=== PATIENT | female | born 1980 | race Caucasian/White ===

== ENCOUNTER 2017-08-05 14:10 | Outpatient (CLI) | payer BC ==
[~2017-08-05 14:10] MED LIST: Gadobenate Dimeglumine 529 MG/1 ML (20ML VIAL) ONE
--- NOTE | 2017-08-05 16:15 | MRI ---
PRE AND POSTCONTRAST ENHANCED MRI IMAGES OF BRAIN: HISTORY: Headache, left side, for 1 year. FINDINGS: Pre- and postcontrast-enhanced MRI images of the brain are obtained. The brain is unremarkable. No evidence of intracranial masses, hemorrhages, strokes, or contusions s een. No evidence of areas of diffusion restriction seen. No abnormal areas of intracranial enhancem ent seen. IMPRESSION: Unremarkable pre- and postcontrast-enhanced MRI images of the brain. POS: [facility]
--- NOTE | 2017-08-05 16:25 | MRI ---
CERVICAL SPINE MRI WITHOUT CONTRAST: 08/05/17 HISTORY: Headache with radiation down the left side of the neck x1 year. COMPARISON: None. TECHNIQUE: Cervical spine MRI is performed without intravenous gadolinium administration. Multisequential, multi planar imaging is performed. FINDINGS: Appropriate T1 marrow signal intensity of the cervical vertebrae. Vertebral body height is maintained . No fracture. No significant STIR hyperintensity to suggest edema or ligamentous injury. The visualized brain parenchyma, cervicomedullary junction, cervical cord and the upper thoracic cord have a normal size and signal intensity. C2-C3: No significant disc osteophyte complex. No significant central canal stenosis. Neural foramina are patent. C3-C4: No significant disc osteophyte complex. No significant central canal stenosis. Foramina are pa tent. C4-C5: No significant disc osteophyte complex. No significant central canal stenosis. Neural foramina are patent. C5-C6: No significant disc osteophyte complex. No significant central canal stenosis. Foramina are pa tent. C6-C7: Disc osteophyte complex abuts the thecal sac. There is partial effacement of the ventral subar achnoid space. Mild central canal stenosis, without T2 hyperintensity in the cord. Neural foramina ar e patent bilaterally. C7-T1: No significant disc osteophyte complex. No significant central canal stenosis. Foramina are pa tent. IMPRESSION: Degenerative changes of the cervical spine as above. POS: [facility]
== END 2017-08-05 14:11 | disposition home or self-care (01) ==
LOC: SCSMRI 14:10
PROVIDERS: ATTEND Psychiatry & Neurology Neurology
DX: G24.9 Dystonia, unspecified (principal); R51 Headache; M43.02 Spondylolysis, cervical region
CPT/HCPCS: 70553; 72141; A9579